=== PATIENT | male | born 1950 | race Caucasian/White ===

== ENCOUNTER → 2023-10-03 10:57 | Outpatient (REF) | payer MEDICARE, OTHER, SELFPAY | LOC: RCS 10:57 | PROVIDERS: ATTENDING PHYSICIAN Internal Medicine Cardiovascular Disease; FAMILY PHYSICIAN Anesthesiology | DX: I48.21 Permanent atrial fibrillation (principal) | CPT/HCPCS: 93306 ==

== ENCOUNTER 2023-11-15 10:27 | Day surgery (SDC) | payer MEDICARE, OTHER, SELFPAY ==
--- NOTE | 2023-11-14 13:11 | HPS.HSE ---
Family Physician
-
Family Physician: INTERVIEWE UNKNOWN - PT NOT
Chief Complaint
-
Worsening cardiomyopathy-permanent pacemaker placement
History of Present Illness
73-year-old male with past medical history of recovered cardiomyopathy, permanent fibrillation and PVI x two presents with recurrent newly depressed ejection fraction and cardiomyopathy. The patient has palpitations and shortness of breath.
Echocardiogram from October 03, 2023 LVEF declined back down to 30-35%. Previously EF was 50 to 55% from 2020. After a Lengthy discussion with the patient and family, we agreed to proceed with a single chamber permanent pacemaker first and then AV note
ablation (in 3-4 weeks) to help obtain better rate control and improve his left ventricular ejection fraction. His QRS is narrow, and therefore we will not be pursuing resynchronization therapy or biventricular pacing. The previous etiology for his
cardiomyopathy was from atrial fibrillation with poorly controlled rates.
Medical History
Past Medical History
Past Medical History: Reports Arrhythmia and Other (see below)
Additional Past Medical History:
HTN
HLD
Permanent Afib
HFrEF-30-35% by echo 09/2023
NICM
BPH
Past Surgical History: Reports Cardiac (CV, PVI)
Social History
Tobacco: Non-smoker
Alcohol: Occasional
Living: With Family
Family History
Family History: Not pertinent
Allergies / Home Medications
Allergies reflects when Allergies were last updated in [facility] [facility] [employer].
Home Medications with original date entered in [employer] [facility] [facility] [employer]
Allergy/Medication List:
Allergy:
NKDA
Medications:
Carvedilol 12.5mg bid
Flomax 0.4mg daily
Simvastatin 10mg daily
Xarelto 20mg daily
Digoxin .125mg daily
Review of Systems
-
A 12 point ROS was completed and negative except as noted: Yes
Physical Exam
Physical Exam
General: Well Developed and Well Nourished
HEENT: NormoCephalic
Respiratory: Clear and Non Labored Respirations
Cardiac: Irregular Rhythm
GI: Soft, Non Tender and Non Distended
Musculoskeletal: No Edema (trace) and Normal Gait & Station
Skin: Warm and Dry
Neuro: AO x 3 and Cranial Nerves Intact
Impression/Plan
-
IMPRESSION/PLAN:
Worsening CM-Permanent Pacemaker placement
[2023-11-15] VITALS (9 sets, daily range): BP systolic 104–128; BP diastolic 72–90
--- NOTE | 2023-11-15 15:49 | CM ---
Chart reviewed. Patient is independent of ADLS, lives with his in a 2 [address], 3-4 [facility], 0 DME. Plan is for the patient to return home. CM to follow
--- NOTE | 2023-11-15 16:13 | ITS.CL.PACE ---
Groundskeeper - Pacemaker Implant
Pacemaker Implant
Procedure Report:
PACEMAKER IMPLANT REPORT
Primary Care Provider: Dr Omar Martell
Date of Procedure: 11/15/23
Procedure:
Implantation of dual-chamber permanent pacemaker utilizing the left bundle branch for conduction system pacing
Indication/Diagnosis:
Non-reversible symptomatic bradycardia due to sinus node dysfunction and third degree atrioventricular block.
He has permanent AF with history of cardiomyopathy with poorly controlled ventricular rates. LVEF previously normalized with rate control. Rates have once again become poorly controlled despite our best attempts at maximally tolerated medical
therapy. He is once again developed cardiomyopathy/reduction in LV systolic function as evidenced by recent echocardiogram. Echocardiogram from October 03, 2023 finds LVEF of 30 to 35%. Compared to previous echocardiogram from February 25, 2021 LVEF
was previously 50-55%. He has had intolerances to several drugs.
He is planned for permanent pacemaker implantation plan for AV node ablation in several weeks to better control his ventricular rates.
After informed consent was obtained, 'time out' was called and confirmed, the patient was prepped and draped in a sterile fashion. Lidocaine with epi was used for local anesthesia. Central venous access was obtained via subclavian venipuncture. An
incision was made along the left chest and a pre-pectoral pocket was formed. Using a Seldinger technique and peel-away sheaths, the pacing leads were placed under fluoroscopic guidance.
Fluoroscopy was used to determine likely anatomic site for left bundle branch pacing. The Medtronic C315 sheath was used to deliver the Medtronic 3830 Selectsecure pacing lead with the helix exposed just exposed from the sheath tip during continuous
monitoring when pacemapping the septum during gentle clockwise rotation to obtain a paced QRS morphology of a W pattern in lead V1. Once the suspected optimal site was identified, lead deployment was performed with several rapid rotations as paced
QRS morphology was intermittently monitored until a paced QRS complex in lead V1 demonstrated development of an R wave (QR).
Unipolar pacing impedance dropped by approximately 200 ohms suggesting it had reached the left ventricular subendocardial.
Stable VEgm injury current is present throughout lead position and at end of case. suggesting there was no perforation through the septum into the LV cavity.
Final unipolar pacing impedance is 900 Ohms.
Unipolar pacing threshold is stable at 0.5 V @ 0.4 ms.
Final conduction system paced QRS complex duration is 99 ms
LVAT is 78 ms and peak V5 -> peak V1 timing is 40 ms
Once testing (see below) showed adequate and stable function, the leads were secured using the suture sleeves. The pocket was liberally irrigated with antibiotic solution. The leads were connected to the generator header and the leads and
generator were placed within the pocket. Fluoroscopy confirmed stable lead position. The pocket was closed in the typical fashion.
IMPLANTS:
Medtronic [id number], SN: [id number], Left Pectoral
RV: Medtronic 3830 , SN:[id number], Interventricular septum at LBB
DEVICE TESTING:
Sensing: RV 3.4 mV
Capture: RV 0.5 V@0.4ms
Ohms: RV 799 (bipolar)
FINAL PROGRAMMING
Leonel Pacing: VVIR 50-130 ppm
COMPLICATIONS:
None
CONCLUSIONS:
1: Successful implant of dual chamber permanent pacemaker utilizing Left Bundle Branch conduction system capture for pacing.
RECOMMENDATIONS:
1. Post-op care (tele, CXR, IV abx)
2. In-Office wound check in 5-7 days
3. Plan for AV node ablation which is currently planned for December 06, 2023
Copy to: Dr Omar Martell
--- NOTE | 2023-11-15 18:00 | PTCARENOTE ---
Pt received post procedure at 1530. Left arm immobilizer and chest pressure dressing intact. Pt denies any pain or discomfort. No c/o offered.
[2023-11-15] MEDS: FLOMAX 0.4 MG PO (18:11)
--- NOTE | 2023-11-15 19:00 | PTCARENOTE ---
report received from previous RN, walking rounds done, assumed care of patient. pt in bed, at bedside. pt AAOx4, pt denies any pain at this time. arm immobilizer intact to left arm. left chest wall incision dressing CDI. AFIB w V.pacing on
monitor, HR 70s-80s. POX 97% on room air. skin CDI. PIV intact and patent. see worklist for full assessment, VS, and interventions.
[2023-11-15] MEDS: COREG 12.5 MG PO (20:09)
[2023-11-15] MEDS: ANCEF 5 IV (20:09)
[2023-11-15] MEDS: LIPITOR 10 MG PO (21:13)
[2023-11-16 03:11] VITALS: BP 109/82
[2023-11-16] MEDS: ANCEF 5 IV (03:36)
[2023-11-16 04:14] LABS: Hematocrit 39.2 % (39.0-52.0); Hemoglobin 14.1 g/dL (13.0-18.0); Mean Corpuscular Hgb 31.3 pg (27.0-31.0); Mean Corpuscular Volume 86.9 fL (80.0-94.0); Mean Platelet Volume 10.3 fL (7.4-10.4); Platelet Count 160 10^3/uL (130-400); Red Blood Cell Count 4.51 10^6/uL (4.70-6.10); Red Cell Dist. Width 12.2 % (11.5-14.5); White Blood Cell Count 7.9 10^3/uL (4.8-10.8)
[2023-11-16 04:37] LABS: Blood Urea Nitrogen 21 mg/dl (9-20); Calcium 9.1 mg/dl (8.4-10.2); Carbon Dioxide 24 mmol/L (22-30); Chloride 106 mmol/L (98-107); Estimated Creatinine Clearance 93 ml/min; Glucose 119 mg/dl (70-99); Magnesium 1.9 mg/dl (1.6-2.3); Potassium 4.6 mmol/L (3.5-5.1); Sodium 139 mmol/L (135-145); eGFR > 60.00
[2023-11-16 04:50] VITALS: BMI 34.8
[2023-11-16 07:37] VITALS: BP 117/73
[2023-11-16] MEDS: LANOXIN 125 MCG PO (07:41)
[2023-11-16] MEDS: COREG 12.5 MG PO (07:41)
[2023-11-16] MEDS: FLOMAX 0.4 MG PO (07:41)
--- NOTE | 2023-11-16 09:06 | W.PN.CARDCBS ---
Addendum entered and electronically signed by Bill Go MD 11/16/23 13:07:
Patient seen, interviewed and examined by me.
Well-appearing, no acute distress
Dressing over left chest is clean and dry
Irregular rate and rhythm with normal S1 and S2, no S3 no S4. There is a grade 1/6 apical holosystolic murmur and no rubs. PMI is normally placed.
Lungs are clear to auscultation bilaterally without wheezes rales or rhonchi.
Abdomen soft nontender nondistended with normoactive bowel sounds
Extremities show trace pretibial edema bilaterally no clubbing or cyanosis.
Neurologic exam is grossly nonfocal.
Agree with advanced practice professionals assessment and plan as noted below.
I discussed yesterday's procedure and results with the patient in detail. Additionally yesterday after the procedure I discussed it again with his . I answered all of their questions.
I again reviewed with the patient that our concern has been atrial fibrillation with rapid ventricular rates with inability to control his rhythm and his heart rate. He has previously had atrial fibrillation related/tachycardia mediated
cardiomyopathy which resolved with rate control. He once again has developed significant LV dysfunction in the setting of poor rate control. He has been unable to tolerate suggested AV homero blocking agents. Therefore permanent pacemaker was
implanted with plan to proceed with AV node ablation in 3 to 4 weeks. He tells me he does understand and he agrees with the plan.
I also reviewed discharge instructions with him including her motion restrictions.
He is stable for discharge to home today.
Original Note:
Today's Communication / Plan
-
-ok for discharge to home
-elective readmission for AV homero ablation 12/06/23
-device teaching done w/ pt and
Impression / Plan
-
PCP: Yaw Benavides
Primary tube room supervisor: Bill Go MD
Impression:
Status post elective single-chamber PPM (Medtronic) utilizing left bundle branch conduction system capture for pacing 11/15/2023
Permanent atrial fibrillation (Xarelto)
Cardiomyopathy, EF 30-35% by echo 10/03/23
Syncope, thought to be vasovagal in origin
Plan for AV homero ablation 12/06/2023
Hyperlipidemia
Hypertension
BPH
EKG 11/16/2023: Atrial fibrillation, cannot rule out anterior septal infarct
Echocardiogram 10/03/2023: EF 30 to 35%, mild MR, mild TR. Previous EF was 50 to 55%
Echocardiogram 02/25/2021: EF 50 to 55%, mild MR
Plan:
-uneventful night
-post procedure CXR without pneumothorax
-discussed activity and limb restrictions with pt and
-stable for discharge today
-outpatient f/u wound check in 1 week - scheduled at [facility]
-scheduled for elective AV homero ablation 12/06/23
-resume Xarelto
-resume Carvedilol, Digoxin, at outpatient doses. Not on MARK-I/ARB, has had issues with hypotension in past.
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
Subjective
Date of Service: November 16, 2023
-s/p Medtronic pacemaker 11/15/23
-feels well, no fever, chills, incisional pain
- anxious about home monitoring of device
Objective
Labs:
11/16/23 03:17
11/16/23 03:17
Labs
Hgb 14.1 g/dL (13.0-18.0) 11/16/23 03:17
Hct 39.2 % (39.0-52.0) 11/16/23 03:17
Plt Count 160 10^3/uL (130-400) 11/16/23 03:17
Sodium 139 mmol/L (135-145) 11/16/23 03:17
Potassium 4.6 mmol/L (3.5-5.1) 11/16/23 03:17
BUN 21 mg/dl (9-20) H 11/16/23 03:17
Creatinine 0.8 mg/dL (0.7-1.3) 11/16/23 03:17
Glucose 119 mg/dl (70-99) H 11/16/23 03:17
Vital Signs and I&O:
Vital Signs
Temp Pulse Resp BP Pulse Ox
97.5 F 83 17 113/72 98
11/16/23 07:35 11/15/23 23:01 11/16/23 07:35 11/15/23 23:01 11/16/23 08:00
Vital Signs
Temp Pulse Resp BP Pulse Ox
97.5 F 83 17 113/72 98
11/16/23 07:35 11/15/23 23:01 11/16/23 07:35 11/15/23 23:01 11/16/23 08:00
Physical Exam
Physical Exam
GEN: No distress, awake, Ox3
HEENT: supple, anicteric, mmm
LUNGS: CTA, no wheezes/rales
CV: irreg, irreg
ABD: soft, BS+, NT/ND
EXT: No edema
NEURO: Gross non-focal
SKIN: No rash, pressure drsg removed, aquacell drsg over incision, minimal spotting on drsg, no hematoma
--- NOTE | 2023-11-16 11:51 | W.DS.TRANS ---
DC Summary - Inspector And Mender
-
Discharge Instructions:
Sleep Apnea Risk Intermediate
Discharge Diagnosis/Procedures Pacemaker implant
Diet Low Cholesterol
Activity Other activity
Additional Activity see attached sheet
Driving Restrictions No driving for 1 week
Bathing Restrictions OK to Shower
Instructions:
Stand-Alone Forms: DC Inst - Implanted Device
Changes to Home Medications: No
Discharge Medications:
DC Medications w/original date entered in [employer]
simvastatin 10 mg tablet 10 mg PO HS 04/16/10
Lactobacil.acidophilus-Bifido.animalis 5 billion cell sprinkle capsule (Probiotic) 2 ea PO DAILY 06/23/15
rivaroxaban 20 mg tablet (Xarelto) 20 mg PO QPM 06/23/15
carvedilol 12.5 mg tablet 12.5 mg PO BID 11/07/23
cholecalciferol (vitamin D3) 50 mcg (2,000 unit) capsule (Vitamin D3) 50 mcg PO DAILY 11/07/23
coenzyme Q10 100 mg capsule (CoQ-10) 100 mg PO DAILY 11/07/23
digoxin 125 mcg (0.125 mg) tablet 125 mcg PO DAILY 11/07/23
tamsulosin 0.4 mg capsule 0.4 mg PO DAILY 11/07/23
Home Medication Changes
Pending Results: No
--- NOTE | 2023-11-16 13:00 | PTCARENOTE ---
Pt received this am oob ad jennifer in the room. Denies any pain or discomfort. Left arm immobilizer intact. Left chest dressing dry and intact. Pt discharged to home with his . Discharge instructions given and reviewed with good understanding.
--- NOTE | 2023-11-16 14:22 | W.PN.UPDATE ---
Update Note
Progress Note Update
discharge summary dictated, #[id number]
== END 2023-11-16 12:28 | disposition home or self-care (01) ==
LOC: CATH 10:27
PROVIDERS: Nurse Practitioner Adult Health; ATTENDING PHYSICIAN Internal Medicine Cardiovascular Disease; FAMILY PHYSICIAN Anesthesiology
DX: I44.2 Atrioventricular block, complete (principal); I49.5 Sick sinus syndrome; I42.9 Cardiomyopathy, unspecified; I48.21 Permanent atrial fibrillation; Z79.01 Long term (current) use of anticoagulants; I10 Essential (primary) hypertension; E78.5 Hyperlipidemia, unspecified; I42.8 Other cardiomyopathies; N40.0 Benign prostatic hyperplasia without lower urinary tract symptoms
CPT/HCPCS: 33207; 71045; 80048; 83735; 85027; 87070; 87147; 93005; C1769; C1786; C1887; C1892; C1898; Q9967

== ENCOUNTER 2023-12-06 08:21 | Day surgery (SDC) | payer MEDICARE, OTHER, SELFPAY ==
[2023-11-14 10:23] VITALS: BMI 33.9
--- NOTE | 2023-11-14 13:18 | HPS.HSE ---
Family Physician
-
Family Physician: INTERVIEWE UNKNOWN - PT NOT
Chief Complaint
-
Worsening Cardiomyopathy-AV node ablation
History of Present Illness
73-year-old male with past medical history of recovered cardiomyopathy, permanent fibrillation and PVI x two presents with recurrent newly depressed ejection fraction and cardiomyopathy. The patient has palpitations and shortness of breath.
Echocardiogram from October 03, 2023 LVEF declined back down to 30-35%. Previously EF was 50 to 55% from 2020. After a Lengthy discussion with the patient and family, we agreed to proceed with a single chamber permanent pacemaker first and then AV note
ablation (in 3-4 weeks) to help obtain better rate control and improve his left ventricular ejection fraction. His QRS is narrow, and therefore we will not be pursuing resynchronization therapy or biventricular pacing. The previous etiology for his
cardiomyopathy was from atrial fibrillation with poorly controlled rates.
Medical History
Past Medical History
Past Medical History: Reports Other (see below)
Additional Past Medical History:
HTN
HLD
Permanent Afib
HFrEF-30-35% by echo 09/2023
NICM
BPH
Past Surgical History: Reports Other (CV, PVI)
Social History
Tobacco: Non-smoker
Alcohol: Occasional
Living: With Family
Family History
Family History: Not pertinent
Allergies / Home Medications
Allergies reflects when Allergies were last updated in [employer].
Home Medications with original date entered in [employer]
Allergy/Medication List:
Allergy/Medication List:
Allergy:
NKDA
Medications:
Carvedilol 12.5mg bid
Flomax 0.4mg daily
Simvastatin 10mg daily
Xarelto 20mg daily
Digoxin .125mg daily
Review of Systems
-
A 12 point ROS was completed and negative except as noted: Yes
Physical Exam
Physical Exam
General: Well Developed and Well Nourished
HEENT: NormoCephalic
Respiratory: Clear, Wheezes and Non Labored Respirations
Cardiac: Irregular Rhythm
GI: Soft, Non Tender and Normal Bowel Sounds
Musculoskeletal: No Edema (trace)
Skin: Warm and Dry
Neuro: Cranial Nerves Intact
Impression/Plan
-
IMPRESSION/PLAN:
Worsening cardiomyopathy due to poorly controlled Afib-proposed AV node ablation.
[2023-12-06] VITALS (9 sets, daily range): BP systolic 117–132; BP diastolic 80–92; BMI 34.2
--- NOTE | 2023-12-06 13:40 | ITS.CL.ABL ---
Booster Operator - Ablation
Ablation
Procedure Report:
ELECTROPHYSIOLOGIC EVALUATION AND POSSIBLE ABLATION
Date of procedure: 12/06/23
Primary Care Provider: Dr. Omar Martell
INDICATION: Permanent atrial fibrillation with rapid ventricular rates unable to adequately controlled with medical therapy
HISTORY:
During atrial fibrillation with rapid ventricular rates unable to control adequately with medical therapy. He underwent permanent pacemaker implantation last month. He presents now for AV homero ablation.
'TIME-OUT': called and confirmed.
SEDATION/ANESTHESIA:
PROCEDURE:
Ultrasound Guidance performed by pr was utilized for femoral venous Vascular Access b/l.
The Medtronic single-chamber permanent pacemaker was interrogated and reprogrammed from VVIR 70 to VVI 40 ppm.
After assuring good capture parameters, a deflectable-tip mapping/ablation catheter was advanced to the medial tricuspid annulus region of the right atrium where a HIS potential was identified. The catheter was slightly withdrawn from this
location to a site more proximal on the right atrial septum, about jail between the HIS recording position and that of the coronary sinus os. At this location, a small HIS potential was evident along with large amplitude atrial deflections and a
relatively small ventricular electrogram. Radiofrequency energy was applied at this site using a temperature-controlled system resulted in an accelerated junctional rhythm followed by deceleration and heart block. At the conclusion of this, no QRS
escape rhythm was present at a a pacing rate of 30 bpm.
The Medtronic dual-chamber permanent pacemaker was interrogated and found to have stable function compared to the pre-ablation findings. Reprogramming included reprogramming base pacing rate to VVIR 75.
COMPLICATIONS: None
SUMMARY:
Interrogation and reprograming of Medtronic single-chamber permanent pacemaker
Successful mapping and ablation of the AV node
RECOMMENDATIONS:
Resume anticoagulation
Discontinue digoxin
Continue carvedilol
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
Copy to: Dr. Omar Martell
--- NOTE | 2023-12-06 13:50 | W.PN.UPDATE ---
Update Note
Progress Note Update
Pt seen post AVJ ablation. Right groin with vascade closure, no ht/bleeding. OOB ambulating, urinating without difficulty. Post EKG Vpaced 75. Resume xarelto this evening. Will discontinue digoxin at this time. Followup at [facility] as scheduled. Home
today if groin site/tele remain stable.
== END 2023-12-06 14:00 | disposition home or self-care (01) ==
LOC: CATH 08:21
PROVIDERS: ATTENDING PHYSICIAN Internal Medicine Cardiovascular Disease; FAMILY PHYSICIAN Anesthesiology
DX: I48.21 Permanent atrial fibrillation (principal); R06.02 Shortness of breath; I10 Essential (primary) hypertension; E78.5 Hyperlipidemia, unspecified; N40.0 Benign prostatic hyperplasia without lower urinary tract symptoms; Z79.01 Long term (current) use of anticoagulants
CPT/HCPCS: 93286 ×2; C1733; C1893; C1894; 86850; 86900; 86901; 93005; 93650; C1760

== ENCOUNTER → 2024-05-23 12:25 | Outpatient (REF) | payer MEDICARE, OTHER, SELFPAY | LOC: RCS 12:25 | PROVIDERS: ATTENDING PHYSICIAN Nurse Practitioner; FAMILY PHYSICIAN Anesthesiology | DX: I48.21 Permanent atrial fibrillation (principal) | CPT/HCPCS: 93306 ==